=== PATIENT | male | born 1995 | race Caucasian/White ===

== ENCOUNTER 2020-09-29 22:09 | Emergency (ER) | payer OTHER, SELFPAY ==
[2020-09-29 22:15] VITALS: BP 146/86; PULSE 77; RESP 16; TEMP 36.9; O2SAT 97
--- NOTE | 2020-09-30 00:25 | ED.URI ---
HPI - URI/Sore Throat General Chief Complaint: Upper Respiratory Infection Stated Complaint: cough Time Seen by Provider: 09/29/20 23:04 History of Present Illness HPI Narrative: Patient is a 25-year-old male who comes to the ER for evaluation of infectious symptoms. 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 Reports he was driving and developed some chills. No documented fevers. No known sick contacts. Works at a local [employer] station so he may have been around Covid but no known contacts. Denies chest pain or chest pressure. No difficulty swallowing or breathing. Patient concerned he could have been exposed to mold yesterday when he changed a toilet paper wall but did not see any actual mold on the wall. Related Data Allergies Allergy/AdvReac Type Severity Reaction Status Date / Time No Known Allergies Allergy Unverified 11/14/16 11:47 Review of Systems Constitutional: Constitutional: Reports chills, Denies fever(s) and Denies weakness ENT: Reports nasal congestion and Reports sore throat Respiratory: Respiratory: Reports cough, Denies dyspnea and Denies wheezing PMFSH Past Medical History Medical History (Updated 09/30/20 @ 00:28 by Azeem Huerta MD) Asthma Hypothyroidism Surgical History Surgical History (Updated 09/30/20 @ 00:27 by Azeem Huerta MD) No pertinent past surgical history Exam Narrative: Exam Narrative: GENERAL: Well-appearing, well-nourished, and in no acute distress. HEAD: Normocephalic, atraumatic. ENT:Mucous membranes moist. Pharyngeal erythema noted without tonsillar hypertrophy or exudate. Uvula midline and nonedematous. CHEST: Clear to auscultation. No respiratory distress. HEART: Regular rate and rhythm. Normal peripheral pulses. NEURO: Alert and oriented x3. PSYCH: Normal mood and affect. Course Course Emergency Course: Patient swab for Covid. Given precautions. Patient verbalized understanding. Vital Signs Vital signs: Vital Signs Temperature 98.4 F 09/29/20 22:15 Pulse Rate 77 09/29/20 22:15 Respiratory Rate 16 09/29/20 22:15 Blood Pressure 146/86 H 09/29/20 22:15 Pulse Oximetry 97 09/29/20 22:15 Temperature 98.4 F 09/29/20 22:15 Pulse Rate 77 09/29/20 22:15 Respiratory Rate 16 09/29/20 22:15 Blood Pressure 146/86 H 09/29/20 22:15 Pulse Oximetry 97 09/29/20 22:15 MDM - URI/Sore Throat Lab Data Labs: Lab Results 09/30/20 Range/Units 00:05 SARS-CoV-2 RNA (RT-PCR) Pending Discharge Plan Discharge Clinical Impression: Upper respiratory infection, Person under investigation for COVID-19 Patient Disposition: Home, Self-Care Condition: Stable Instructions: COVID-19 (Coronavirus Disease 2019) (ED) Additional Instructions: Your swab for Covid. You should stay at home and not expose yourself to other individuals until you receive the results. If your Covid test is positive you will need to remain in isolation until you are cleared by the health department. If your Covid test is negative you may return to work. Return to the ER if you cannot breathe, you cannot keep down food or water, you have chest pain or shortness of breath, you have additional concerns. Prescriptions: New fluticasone propionate [Allergy Relief (fluticasone)] 50 mcg/actuation spray,suspension 1 spray intranasal DAILY Qty: 16 RF: 0 guaifenesin 400 mg tablet 400 mg PO QID Qty: 14 RF: 0 Follow-up/Referrals: Tu Petersen MD [Physician] - 1 Week PHYSICIAN,ENGLISH INSTRUCTOR [Primary Care Provider] -
[2020-09-30 16:53] LABS: SARS-CoV-2 RNA PCR Negative
== END 2020-09-30 01:00 | disposition home or self-care (01) ==
PROVIDERS: Emergency Provider Emergency Medicine
DX: J06.9 Acute upper respiratory infection, unspecified (principal); Z20.828 Contact with and (suspected) exposure to other viral communicable diseases; J45.909 Unspecified asthma, uncomplicated; E03.9 Hypothyroidism, unspecified
CPT/HCPCS: 99283; C9803; U0003; U0005

== ENCOUNTER 2020-12-16 23:36 | Emergency (ER) | payer OTHER, SELFPAY ==
--- NOTE | ~2020-12-16 | XR_ITS ---
EXAMINATION: XR chest 2V DATE: 12/17/2020 00:07 INDICATION: Syncope. TECHNIQUE: Frontal and lateral views of the chest were obtained. COMPARISON: CT abdomen and pelvis 08/27/2013 FINDINGS: There are mild airspace opacities in left lower lung zone. No pleural effusion or pneumotho rax. The heart size is normal. IMPRESSION: 1. Mild airspace opacities in left lower lung zone, consistent with atelectasis versus pneumonia. Reviewed, dictated and finalized at location A.
--- NOTE | ~2020-12-16 | CT_ITS ---
EXAMINATION: CT brain wo con DATE: 12/17/2020 00:01 INDICATION: Syncope. TECHNIQUE: Computed tomography (CT) of the head was performed without intravenous contrast. The mA wa s adjusted according to patient size. Iterative reconstruction technique was employed. The dose-lengt h product was 605.33 mGy-cm. COMPARISON: None FINDINGS: There is no intracranial hemorrhage, acute infarction, or abnormal intracranial mass lesion . The ventricles are normal in size. There is mild mucosal thickening in the paranasal sinuses. The o rbits are normal. The mastoid air cells are normal. IMPRESSION: 1. Normal brain. Reviewed, dictated and finalized at location A. IMPRESSION: 1. Normal brain.
[2020-12-16 23:32] VITALS: BP 145/90; PULSE 79; RESP 16; TEMP 36.6; O2SAT 100
--- NOTE | 2020-12-16 23:44 | ECG_ITS ---
Measurements Intervals [place] Rate: 74 P: 52 NM: 186 QRS: 54 QRSD: 109 T: 32 QT: 339 QTc: 376 Interpretive Statements SINUS RHYTHM INCOMPLETE RIGHT BUNDLE BRANCH BLOCK ST ELEVATION IN DIFFUSE LEADS, CONSIDER PERICARDITIS, EARLY REPOLARIZATION BASELINE ARTIFACT- I, III, AVR, AVL, AVF ABNORMAL ECG Electronically Signed On 12-17-2020 6:39:54 CDT by Ryan Alexander D.O.
--- NOTE | 2020-12-16 23:46 | ED.SYNCOPE ---
HPI - Syncope General Chief Complaint: Syncope Stated Complaint: syncopal Source: patient, EMS, RN notes reviewed and old records reviewed History of Present Illness HPI narrative: 25-year-old male presents to emergency department via EMS from work after having a syncopal episode. Patient states he right at work around 10 PM, and later on started to feel like he was about to pass out. He was feeling lightheaded/dizzy, and was having some shortness of breath. When he woke up he still has some mild shortness of breath. Per EMS no seizure-like activity. Patient states he has had this in the past before, unknown cause. Does report having a headache since he had the syncopal episode Related Data Allergies Allergy/AdvReac Type Severity Reaction Status Date / Time No Known Allergies Allergy Unverified 11/14/16 11:47 Review of Systems Review of Systems: Narrative: CONSTITUTIONAL: Denies fever, chills, or sweats. EYES: Denies visual changes, redness, or discharge. ENT: Denies rhinorrhea, congestion, sore throat, or otalgia. CARDIOVASCULAR: Denies chest pain, palpitations, or edema. RESPIRATORY: Denies cough or dyspnea. GASTROINTESTINAL: Denies abdominal pain, nausea, vomiting, or diarrhea. GENITOURINARY: Denies dysuria or hematuria. SKIN: Denies rash or itching. MUSCULOSKELETAL: Denies back pain, joint pain, or myalgia. NEUROLOGIC: Denies numbness, dizziness, or weakness. Reports headache PSYCHIATRIC: Denies anxiety or depression. All systems reviewed & are unremarkable except as noted in HPI and below (ROS) PMFSH Past Medical History Medical History Asthma Hypothyroidism Surgical History Surgical History No pertinent past surgical history Exam Narrative: Exam Narrative: GENERAL: Well-appearing, well-nourished. Mild distress HEAD: Normocephalic, atraumatic. EYES: PERRLA and EOMI. ENT: Nares clear, no rhinorrhea or epistaxis. Mucous membranes moist. NECK: Supple. CHEST: Clear to auscultation. No respiratory distress. HEART: Regular rate and rhythm. No murmur heard. Normal peripheral pulses. ABDOMEN: Soft, nontender, nondistended, normal active bowel sounds. EXTREMITIES: Normal range of motion. No edema. SKIN: Warm, dry, no rash. NEURO: No focal deficits. Alert and oriented x3. PSYCH: Normal mood and affect. Course Course Emergency Course: 1:00AM -reevaluated patient, headache improved. Patient states he has been under a lot of stress recently and not sleeping. This likely caused the syncopal episode. 1:35AM -reevaluated patient, no new complaints at this time. Counseled patient follow-up with his primary care physician within 1 week. Return to emergency department if he has no syncopal episode, or other concerns. Counseled patient that he will need repeat chest x-ray by primary care physician. Vital Signs Vital signs: Vital Signs Temperature 36.6 C 12/16/20 23:32 Pulse Rate 79 12/16/20 23:32 Respiratory Rate 16 12/16/20 23:32 Blood Pressure 145/90 H 12/16/20 23:32 Pulse Oximetry 100 12/16/20 23:32 Temperature 36.3 C L 12/17/20 01:56 Pulse Rate 71 12/17/20 01:56 Respiratory Rate 16 12/17/20 01:56 Blood Pressure 138/77 12/17/20 01:56 Pulse Oximetry 100 12/17/20 01:56 MDM - Syncope Medical Records Attestation: I reviewed the patient's medical records. Lab Data Attestation: I reviewed the patient's lab results. Result diagrams: 12/16/20 23:50 12/16/20 23:50 Labs: Lab Results 12/16/20 12/16/20 12/16/20 Range/Units 23:50 23:50 23:50 WBC 7.3 (4.5-10.0) K/mm3 RBC 4.83 (4.6-6.20) M/mm3 Hgb 14.3 (14.0-18.0) g/dL Hct 39.5 L (42.0-52.0) % MCV 81.8 (80-100) fl MCH 29.6 (26-34) pg MCHC 36.2 H (32-36) g/dl RDW 12.6 (11.5-14.5) % Plt Count 218 (150-375) k/mm3 MPV 10.8 H (7.4-10.4) fl I
[2020-12-17 00:30] LABS: Ethanol < 10 mg/dL (<10)
[2020-12-17 00:32] LABS: Basophils Absolute Auto 0.1 K/mm3 (0.0-0.1); Eosinophils Absolute Auto 0.4 K/mm3 (0-0.3); Eosinophils Percent Auto 5.5 % (0-4.4); Hematocrit 39.5 % (42.0-52.0); Hemoglobin 14.3 g/dL (14.0-18.0); Immature Granulocyte Absolute 0.03 K/mm3 (0.00-0.031); Immature Granulocyte Percent A 0.4 % (0-0.5); Lymphocytes Absolute Auto 3.12 K/mm3 (0.9-3.2); Lymphocytes Percent Auto 42.7 % (18.3-44.2); Mean Corpuscular HGB Conc 36.2 g/dl (32-36); Mean Corpuscular Hemoglobin 29.6 pg (26-34); Mean Corpuscular Volume 81.8 fl (80-100); Mean Platelet Volume 10.8 fl (7.4-10.4); Monocytes Absolute Auto 0.4 K/mm3 (0.1-0.6); Monocytes Percent Auto 5.7 % (2.6-8.5); Neutrophils Absolute Auto 3.3 K/mm3 (1.3-6.7); Neutrophils Percent Auto 44.7 % (45.5-73.1); Platelet Count Result 218 k/mm3 (150-375); Red Blood Count 4.83 M/mm3 (4.6-6.20); Red Cell Distribution Width 12.6 % (11.5-14.5); White Blood Count 7.3 K/mm3 (4.5-10.0)
[2020-12-17] MEDS: KETOROLAC 30 MG/ML VIAL (*BKC) IV PUSH (00:32)
[2020-12-17 01:32] LABS: Amphetamine Screen Urine Negative (Negative); Barbiturate Screen Urine Negative (Negative); Benzodiazepines Screen Urine Negative (Negative); Cannabinoid Screen Urine Negative (Negative); Cocaine Screen Urine Negative (Negative); Methadone Screen Urine Negative (Negative); Opiate Screen Urine Negative (Negative); Phencyclidine Screen Urine Negative (Negative)
[2020-12-17 01:56] VITALS: BP 138/77; PULSE 71; RESP 16; TEMP 36.3; O2SAT 100
[2020-12-17 02:53] LABS: Alanine Aminotransferase 72 U/L (4-50); Albumin Level 3.4 g/dL (3.5-5.1); Alkaline Phosphatase 70 U/L (38-126); Anion Gap 7 mmol/L (8-16); Aspartate Amino Transferase 36 U/L (17-59); Bilirubin,Total 0.2 mg/dL (0.2-1.3); Blood Urea Nitrogen 16 mg/dL (9-20); Calcium 7.5 mg/dL (8.4-10.2); Carbon Dioxide 20 mmol/L (22-30); Chloride 110 mmol/L (98-107); Estimated CRCL calculation 206 ml/min; Estimated Glomerular Filt Rate > 60; Glucose 222 mg/dL (75-110); Magnesium 1.4 mg/dL (1.6-2.3); Potassium 3.3 mmol/L (3.4-5.0); Sodium 137 mmol/L (137-145)
== END 2020-12-17 01:57 | disposition home or self-care (01) ==
PROVIDERS: Emergency Provider Emergency Medicine
DX: R55 Syncope and collapse (principal); J45.909 Unspecified asthma, uncomplicated; E03.9 Hypothyroidism, unspecified; F43.9 Reaction to severe stress, unspecified; R53.83 Other fatigue; I45.10 Unspecified right bundle-branch block; R94.31 Abnormal electrocardiogram [ECG] [EKG]
CPT/HCPCS: 36415; 70450; 71046; 80053; 80307; 83735; 85025; 93005; 96374; 99284; J1885

== ENCOUNTER 2020-12-28 16:47 | Emergency (ER) | payer OTHER, SELFPAY ==
[2020-12-28] VITALS (17 sets, daily range): BP systolic 98–140; BP diastolic 68–81; PULSE 80–101; RESP 16–18; TEMP 36.7; O2SAT 95–99
--- NOTE | ~2020-12-28 | CT_ITS ---
EXAMINATION: CT brain wo con DATE: 12/28/2020 18:03 INDICATION: Syncope TECHNIQUE: Computed tomography (CT) of the head was performed without intravenous contrast. The mA wa s adjusted according to patient size. Iterative reconstruction technique was employed. Exam dose: 60 5.33 mGy-cm total exam DLP. COMPARISON: 12/16/2020 CT brain FINDINGS: No intracranial mass lesion or hemorrhage or cerebrovascular accident is detected. No midli ne shift or mass effect. Normal mckeon-white matter differentiation. Normal ventricular size. No subdural or epidural hematoma is detected. No subdural or epidural hematoma. The orbits are symmet fred and unremarkable. No fracture or bone destruction of the cranial vault. There is mild nuchal periosteal thickening of the right maxillary sinus and some soft tissue thickeni ng of the ethmoid air cells. The mastoid air cells are normally developed and aerated. IMPRESSION: Negative intracranial abnormality Reviewed, dictated and finalized at [facility]. Reviewed, dictated and finalized at location A.
--- NOTE | 2020-12-28 16:57 | ECG_ITS ---
Measurements Intervals [place] Rate: 95 P: 57 [place]: 171 QRS: 59 QRSD: 109 T: 32 QT: 329 QTc: 415 Interpretive Statements SINUS RHYTHM INCOMPLETE RIGHT BUNDLE BRANCH BLOCK ST ELEVATION CONSISTENT WITH PERICARDITIS, OR EARLY REPOLARIZATION ABNORMAL ECG Electronically Signed On 12-28-2020 20:03:22 CDT by Ryan Alexander D.O.
[2020-12-28 17:13] LABS: Basophils Percent Auto 0.5 % (0.2-1.2); Eosinophils Absolute Auto 0.4 K/mm3 (0-0.3); Eosinophils Percent Auto 4.9 % (0-4.4); Hemoglobin 15.2 g/dL (14.0-18.0); Immature Granulocyte Absolute 0.04 K/mm3 (0.00-0.031); Immature Granulocyte Percent A 0.5 % (0-0.5); Lymphocytes Absolute Auto 2.53 K/mm3 (0.9-3.2); Lymphocytes Percent Auto 34.1 % (18.3-44.2); Mean Corpuscular HGB Conc 35.3 g/dl (32-36); Mean Corpuscular Hemoglobin 28.9 pg (26-34); Mean Corpuscular Volume 81.7 fl (80-100); Mean Platelet Volume 10.7 fl (7.4-10.4); Monocytes Absolute Auto 0.3 K/mm3 (0.1-0.6); Monocytes Percent Auto 4.6 % (2.6-8.5); Neutrophils Absolute Auto 4.1 K/mm3 (1.3-6.7); Neutrophils Percent Auto 55.4 % (45.5-73.1); Platelet Count Result 212 k/mm3 (150-375); Red Blood Count 5.26 M/mm3 (4.6-6.20); Red Cell Distribution Width 12.7 % (11.5-14.5); White Blood Count 7.4 K/mm3 (4.5-10.0)
--- NOTE | 2020-12-28 18:45 | ED.WEAKNESS ---
HPI - Weakness General Chief complaint: Weakness <Jose Davis MD - Last Filed: 12/28/20 19:14> Stated complaint: headache, near syncope <Jose Davsi MD - Last Filed: 12/28/20 19:14> Time Seen by Provider: 12/28/20 16:53 <Jose Davis MD - Last Filed: 12/28/20 19:14> Source: patient and family <Jose Davis MD - Last Filed: 12/28/20 19:14> Mode of arrival: ambulatory <Jose Davis MD - Last Filed: 12/28/20 19:14> Limitations: no limitations <Jose Davis MD - Last Filed: 12/28/20 19:14> History of Present Illness HPI Narrative: 25-year-old with a history of diabetes, hypothyroidism brought in by family with complaints of marked weakness having frequent syncopal episodes. 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 He also complains of confusion on and off. Patient states that he was at work this afternoon had several similar spells. He denies any headache. No history of chest pain or shortness of breath. No no seizure-like activity. No bladder or bowel incontinence. <Jose Davis MD - Last Filed: 12/28/20 19:14> MD Complaint: generalized weakness <Jose Davis MD - Last Filed: 12/28/20 19:14> Onset (ago): week(s) (2) <Jose Davis MD - Last Filed: 12/28/20 19:14> Location: generalized <Jose Davis MD - Last Filed: 12/28/20 19:14> Related Data Allergies/Adverse reactions: Allergies Allergy/AdvReac Type Severity Reaction Status Date / Time No Known Allergies Allergy Unverified 11/14/16 11:47 <Jose Davis MD - Last Filed: 12/28/20 19:14> Review of Systems Review of Systems: All systems reviewed & are unremarkable except as noted in HPI and below <Jose Davis MD - Last Filed: 12/28/20 19:14> Constitutional: Constitutional: Reports no additional constitutional complaints <Jose Davis MD - Last Filed: 12/28/20 19:14> Eyes: Eyes: Reports no additional eye complaints <Jose Davis MD - Last Filed: 12/28/20 19:14> Cardiovascular: Cardiovascular: Reports no additional cardiovascular complaints <Jose Davis MD - Last Filed: 12/28/20 19:14> Respiratory: Respiratory: Reports no additional respiratory complaints <Jose Davis MD - Last Filed: 12/28/20 19:14> Gastrointestinal: Gastrointestinal: Reports no additional gastrointestinal complaints <Jose Davis MD - Last Filed: 12/28/20 19:14> Musculoskeletal: Musculoskeletal: Reports no additional musculoskeletal complaints <Jose Davis MD - Last Filed: 12/28/20 19:14> Neurologic: Reports system reviewed and no additional complaints, except as documented <Jose Davis MD - Last Filed: 12/28/20 19:14> PMFSH Past Medical History Medical History: Medical History Asthma Hypothyroidism <Jose Davis MD - Last Filed: 12/28/20 19:14> Surgical History Surgical History: Surgical History No pertinent past surgical history <Jose Davis MD - Last Filed: 12/28/20 19:14> Exam Narrative: Exam Narrative: GENERAL: Well-appearing, well-nourished, and in no acute distress. HEAD: Normocephalic, atraumatic. EYES: PERRLA and EOMI. NECK: Supple. CHEST: Clear to auscultation. No respiratory distress. HEART: Regular rate and rhythm. No murmur heard. Normal peripheral pulses. ABDOMEN: Soft, nontender, nondistended, normal active bowel sounds. EXTREMITIES: Normal range of motion. No edema. SKIN: Warm, dry, no rash. NEURO: No focal deficits. Alert and oriented x3. PSYCH: Normal mood and affect. <Jose Davis MD - Last Filed: 12/28/20 19:14> Course Course Emergency Course: Inform patient and family about his lab work, CT findings. Patient states that he drank 32 ounces of regular Mountain Dew prior to coming to the ER and his sugars have been higher. Pat
[2020-12-28 18:48] LABS: Anion Gap 16 mmol/L (8-16); Blood Urea Nitrogen 15 mg/dL (9-20); Calcium 10.3 mg/dL (8.4-10.2); Carbon Dioxide 24 mmol/L (22-30); Chloride 100 mmol/L (98-107); Estimated CRCL calculation 159 ml/min; Estimated Glomerular Filt Rate > 60; Glucose 300 mg/dL (75-110); Potassium 4.3 mmol/L (3.4-5.0); Sodium 140 mmol/L (137-145)
[2020-12-28] MEDS: SODIUM CHLORIDE 0.9% IV 500 ML (19:02)
[2020-12-28] MEDS: INSULIN HUMAN REGULAR (*BKC) 100 UNITS/ML SUB-Q (20:43)
== END 2020-12-28 21:03 | disposition home or self-care (01) ==
PROVIDERS: Family Medicine; Emergency Provider Emergency Medicine; PCP Family Medicine
DX: R55 Syncope and collapse (principal); J45.909 Unspecified asthma, uncomplicated; E03.9 Hypothyroidism, unspecified; E11.65 Type 2 diabetes mellitus with hyperglycemia
CPT/HCPCS: 36415; 70450; 80048; 85025; 93005; 96360; 99284; J1815; J7040

== ENCOUNTER 2023-05-01 13:48 | Emergency (ER) | payer OTHER, SELFPAY ==
--- NOTE | ~2023-05-01 | XR_ITS ---
XR chest 2V DATE: 05/01/2023 14:19 INDICATION: Chest pain. Headache. TECHNIQUE: AP and lateral views COMPARISON: 12/17/2020 AP and lateral chest FINDINGS: Normal heart size. No hilar or mediastinal enlargement. No pulmonary infiltrate or consolid ation, pleural effusion or pulmonary vascular congestion or pneumothorax is detected. IMPRESSION: No active cardiopulmonary disease Reviewed, dictated and finalized at location L.
--- NOTE | 2023-05-01 13:53 | ECG_ITS ---
Measurements Intervals [place] Rate: 82 P: 61 [place]: 164 QRS: 66 QRSD: 114 T: 75 QT: 347 QTc: 408 Interpretive Statements SINUS RHYTHM INCOMPLETE RIGHT BUNDLE BRANCH BLOCK [90+ ms QRS DURATION, TERMINAL R IN V1/V2, 40+ ms S IN I/aVL/V4/V5/V6] NONSPECIFIC ST & T-WAVE ABNORMALITY COMPARED TO ECG 12/28/2020 16:56:57 NO SIGNIFICANT CHANGES Electronically Signed On 05-01-2023 15:51:49 CDT by Henrry Gold M.D.
[2023-05-01 13:54] VITALS: BP 138/98; PULSE 83; RESP 12; TEMP 36.6; O2SAT 99
[2023-05-01 13:58] VITALS: PULSE 90
[2023-05-01 13:59] VITALS: O2SAT 99
--- NOTE | 2023-05-01 14:12 | PC.NURSE ---
Pt to XRAY via stretcher at this time.
[2023-05-01 14:25] LABS: Basophils Percent Auto 0.4 % (0.2-1.2); Eosinophils Absolute Auto 0.1 K/mm3 (0-0.3); Eosinophils Percent Auto 1.9 % (0-4.4); Hematocrit 40.4 % (42.0-52.0); Hemoglobin 13.6 g/dL (14.0-18.0); Immature Granulocyte Absolute 0.04 K/mm3 (0.00-0.031); Immature Granulocyte Percent A 0.6 % (0-0.5); Lymphocytes Absolute Auto 2.67 K/mm3 (0.9-3.2); Mean Corpuscular HGB Conc 33.7 g/dl (32-36); Mean Corpuscular Hemoglobin 28.9 pg (26-34); Mean Corpuscular Volume 85.8 fl (80-100); Mean Platelet Volume 10.3 fl (7.4-10.4); Monocytes Absolute Auto 0.3 K/mm3 (0.1-0.6); Monocytes Percent Auto 4.6 % (2.6-8.5); Neutrophils Absolute Auto 3.8 K/mm3 (1.3-6.7); Neutrophils Percent Auto 54.5 % (45.5-73.1); Platelet Count Result 207 k/mm3 (150-375); Red Blood Count 4.71 M/mm3 (4.6-6.20); Red Cell Distribution Width 12.9 % (11.5-14.5)
[2023-05-01 14:35] LABS: Alanine Aminotransferase 72 U/L (6-50); Alkaline Phosphatase 83 U/L (38-126); Anion Gap 13 mmol/L (8-16); Aspartate Amino Transferase 36 U/L (17-59); Bilirubin,Total 0.5 mg/dL (0.2-1.3); Blood Urea Nitrogen 11 mg/dL (9-20); Calcium 9.8 mg/dL (8.4-10.2); Carbon Dioxide 21 mmol/L (22-30); Chloride 103 mmol/L (98-107); Estimated CRCL calculation 163 ml/min; Estimated Glomerular Filt Rate > 60; Glucose 155 mg/dL (65-110); Lipase 49 U/L (23-300); Potassium 3.7 mmol/L (3.4-5.0); Sodium 137 mmol/L (137-145)
[2023-05-01 14:37] LABS: INR 0.9; Partial Thromboplastin Time 27.7 SECONDS (22.3-36.8); Prothrombin Time 12.8 Seconds (11.1-14.7)
[2023-05-01 14:46] LABS: Troponin I < 0.012 ng/mL (0.000-0.034)
[2023-05-01 14:55] VITALS: BP 156/93; PULSE 96; RESP 14; O2SAT 97
[2023-05-01 15:01] LABS: SARS-CoV-2 RNA PCR Negative (Negative)
[2023-05-01 15:52] VITALS: BP 133/86; PULSE 95; RESP 12; O2SAT 100
--- NOTE | 2023-05-01 16:00 | ED.CHESTPAIN ---
HPI - Chest Pain General Chief Complaint: Chest Pain Stated Complaint: CP Time Seen by Provider: 05/01/23 14:29 History of Present Illness HPI narrative: Patient is a 28-year-old male with a history of diabetes, hypothyroidism presenting with chest pain. Patient states that he woke up this morning with some right-sided chest pain. He initially ignored it and went back to bed but when he woke up it felt worse. States that it is worse with positional changes and sometimes with big breaths. No left-sided chest pain. No leg swelling, recent immobilization, surgeries. Denies lightheadedness or shortness of breath. States that he did have a headache as well as a sore throat and some nasal congestion a couple of days ago. He did not take anything for pain but EMS gave him some aspirin and he states that the symptoms have improved. No fevers or chills, numbness or weakness, abdominal pain, vomiting, diarrhea, dysuria. Related Data Allergies Allergy/AdvReac Type Severity Reaction Status Date / Time No Known Allergies Allergy Verified 05/01/23 14:01 Review of Systems Review of Systems: All systems reviewed & are unremarkable except as noted in HPI and below PMFSH Past Medical History Medical History Asthma Hypothyroidism Surgical History Surgical History No pertinent past surgical history Exam Narrative: GENERAL: Well-appearing and in no acute distress. HEAD: Normocephalic, atraumatic. EYES: PERRLA and EOMI. ENT: Mucous membranes moist. No pharyngeal erythema or exudates NECK: Supple. CHEST: Clear to auscultation. No respiratory distress. + Tenderness along the right costochondral junction into the right sternum HEART: Regular rate and rhythm. No murmur heard. Normal peripheral pulses. ABDOMEN: Soft, nontender, nondistended EXTREMITIES: Normal range of motion. No edema. SKIN: Warm, dry, no rash. NEURO: No focal deficits. Alert and oriented x3. PSYCH: Normal mood and affect. Course Vital Signs Vital signs: Vital Signs Temperature 97.8 F 05/01/23 13:54 Pulse Rate 83 05/01/23 13:54 Respiratory Rate 12 05/01/23 13:54 Blood Pressure 138/98 H 05/01/23 13:54 Pulse Oximetry 99 05/01/23 13:54 Oxygen Delivery Room Air 05/01/23 13:54 Temperature 97.8 F 05/01/23 13:54 Pulse Rate 86 05/01/23 17:19 Respiratory Rate 18 05/01/23 17:19 Blood Pressure 132/76 05/01/23 17:19 Pulse Oximetry 99 05/01/23 17:19 Oxygen Delivery Room Air 05/01/23 13:59 MDM - Chest Pain MDM Narrative Medical decision making narrative: Patient is a 28-year-old male presenting with right-sided chest pain. Vitals are stable. Exam remarkable for the above. EKG per my interpretation shows normal sinus rhythm, incomplete right bundle branch block, nonspecific ST abnormalities. It is unchanged from prior. Blood work is unremarkable. Troponin is undetectable. Patient is PERC negative. Negative for COVID-19. Given the tenderness on exam and the worsening of his pain with certain movements, I most suspect musculoskeletal pain, costochondritis. Discussed appropriate supportive care and return precautions. Advised PCP follow-up. Patient and his parents voiced understanding and are agreeable with plan. Discharged in stable condition. Differential Diagnosis Differential diagnosis: Likely fracture of rib, pneumothorax, atypical chest pain, costochondritis and chest pain Medical Records Data Attestation: I reviewed the patient's medical records. Lab Data Attestation: I reviewed the patient's lab results. 05/01/23 14:11 05/01/23 14:11 Labs: Lab Results 05/01/23 05/01/23 Range/Units 14:11 17:02 WBC 7.0 (4.5-10.0) K/mm3 RBC 4.71 (4.6-6.20) M/mm3 Hgb 13.6 L (14.0-18.0) g/dL Hct 40.4 L (42.0-52.0) % MCV 85.8 (80-100) fl MCH 28.9 (26
[2023-05-01] MEDS: IBUPROFEN 600 MG TABLET PO (16:16)
[2023-05-01 17:19] VITALS: BP 132/76; PULSE 86; RESP 18; O2SAT 99
[2023-05-01 17:30] LABS: Troponin I < 0.012 ng/mL (0.000-0.034)
== END 2023-05-01 17:20 | disposition home or self-care (01) ==
PROVIDERS: Emergency Medicine; Emergency Provider Emergency Medicine; PCP Family Medicine
DX: M94.0 Chondrocostal junction syndrome [Tietze] (principal); Z20.822 Contact with and (suspected) exposure to COVID-19; J45.909 Unspecified asthma, uncomplicated; E03.9 Hypothyroidism, unspecified; E11.9 Type 2 diabetes mellitus without complications; Z79.84 Long term (current) use of oral hypoglycemic drugs; I45.10 Unspecified right bundle-branch block; R94.31 Abnormal electrocardiogram [ECG] [EKG]
CPT/HCPCS: 36415; 71046; 80053; 83690; 84484; 85025; 85610; 85730; 87635; 93005; 99284; A9270

== ENCOUNTER 2023-09-02 14:46 | Emergency (ER) | payer OTHER, SELFPAY ==
--- NOTE | ~2023-09-02 | CT_ITS ---
EXAMINATION: CT abdomen pelvis w con DATE: 09/02/2023 17:49 INDICATION: RLQ pain TECHNIQUE: Computed tomography (CT) of the abdomen and pelvis was performed with 100 mL Omnipaque-350 intravenous contrast. Automated exposure control and iterative reconstruction technique were employe d. The dose-length product was 1169.70 mGy-cm. COMPARISON: 08/27/2013. FINDINGS: Lower thorax: Unremarkable Liver: Enlarged. Diffuse fatty infiltration. Biliary/Gallbladder: Gallbladder is normal. No bile duct dilation. Pancreas: No mass or duct dilation. Spleen: Normal. Adrenals:No mass. Kidneys: No suspicious mass, obstructing stone, or hydronephrosis. 2 mm nonobstructing left lower alana e calcification. GI tract: No small or large bowel dilation. Normal appendix. Diverticulosis without diverticulitis. Mesentery/Peritoneum: No ascites, mass, or free air. Retroperitoneum: No mass. Pelvis: Pelvic organs are within normal limits. Soft Tissues: Soft tissues and body wall unremarkable. Bones: No acute osseous finding. IMPRESSION: Hepatomegaly with steatosis. Otherwise, no acute abdominal process detected. Reviewed, dictated and finalized at location K. EMIC SUPPORT ASSISTANT
[2023-09-02 14:47] VITALS: BP 140/90; PULSE 102; RESP 22; TEMP 36.4; O2SAT 100
[2023-09-02 15:35] LABS: Appearance Urine Clear (Clear); Bacteria Urine None Seen /hpf; Bilirubin Urine Negative (Negative); Blood Urine Negative (Negative); Color Urine Yellow (Yellow); Glucose Urine UA Negative (Negative); Ketones Urine Trace mg/dL (Negative); Leukocyte Esterase Ur Negative LEU/UL (Negative); Nitrate Urine Negative (Negative); Non Pathogenic Casts 0-2; Protein Urine Trace mg/dL (Negative); RBC Urine 0-2 /hpf (0-2); Specific Grav Ur 1.029 (1.001-1.035); Squamous Epithelial Cell Urine None seen /hpf (Few); Urobilinogen Urine 0.2 mg/dL (<2.0); WBC Urine 0-5 /hpf; pH Urine 5.5 (5.0-9.0)
[2023-09-02 15:40] LABS: Add Urine Microscopic? YES
[2023-09-02 16:19] VITALS: BP 125/84; PULSE 100; RESP 20; O2SAT 98
--- NOTE | 2023-09-02 16:50 | ED.ABDPAIN ---
HPI - Abdominal Pain General Chief Complaint: Abdominal Pain Stated Complaint: abd pain Time Seen by Provider: 09/02/23 16:03 History of Present Illness HPI narrative: 28-year-old male presenting to the emergency department for evaluation of right lower quadrant pain. Patient reports the pain started yesterday. Patient states the pain is from his right lower quadrant does radiate down to his testicles. Patient denies any tenderness to palpation. Related Data Allergies Allergy/AdvReac Type Severity Reaction Status Date / Time No Known Allergies Allergy Verified 09/02/23 14:47 Review of Systems Review of Systems: All systems reviewed & are unremarkable except as noted in HPI and below PMFSH Past Medical History Medical History Asthma Hypothyroidism Surgical History Surgical History No pertinent past surgical history Exam Narrative: APPEARANCE: uncomfortable appearing HEAD: normocephalic, atraumatic. EYES: PERRLA/EOMI, conjunctivae clear. NOSE: Normal no drainage EARS:TMS clear with good light reflex. THROAT: Pharynx clear, no exudate. NECK: Supple. No adenopathy, no masses. RESPIRATORY: Airway patent, respirations nonlabored. Clear to auscultation bilaterally, no rales, rhonchi, wheezing. CARDIOVASCULAR: Regular rate and rhythm without murmurs rubs or gallops. ABDOMINAL: No tenderness to right CVA or right lower quadrant MUSCULOSKELETAL: Moves all extremities. Strength/ROM intact, No edema, No calf tenderness. NEURO: Alert. Cranial nerves II through XII intact. Good gait. Good coordination SKIN: Warm, dry. Normal Color . Course Course Emergency Course: 28-year-old male presented to the ED for evaluation right lower quadrant pain. Patient is afebrile with no leukocytosis and a stable hemoglobin of 14.3, patient has no acute abnormalities on his CMP UA had ketones but no evidence of underlying infection. CT scan showed No acute findings. Patient did feel his pain was improved. suspect muscular strain as the underlying etiology. Patient was encouraged close follow-up with primary care physician and was educated reasons to return to the emergency department. All questions concerns were addressed patient was well-appearing at time of discharge. Vital Signs Vital signs: Vital Signs Temperature 97.6 F 09/02/23 14:47 Pulse Rate 102 H 09/02/23 14:47 Respiratory Rate 22 H 09/02/23 14:47 Blood Pressure 140/90 09/02/23 14:47 Pulse Oximetry 100 09/02/23 14:47 Oxygen Delivery Room Air 09/02/23 14:47 Temperature 98.0 F 09/02/23 19:13 Pulse Rate 89 09/02/23 19:13 Respiratory Rate 18 09/02/23 19:13 Blood Pressure 131/93 H 09/02/23 19:13 Pulse Oximetry 98 09/02/23 19:13 Oxygen Delivery Room Air 09/02/23 14:47 MDM - Abdominal Pain Lab Data 09/02/23 17:02 09/02/23 17:02 Labs: Lab Results 09/02/23 09/02/23 Range/Units 15:25 17:02 WBC 7.9 (4.5-10.0) K/mm3 RBC 5.05 (4.6-6.20) M/mm3 Hgb 14.3 (14.0-18.0) g/dL Hct 43.0 (42.0-52.0) % MCV 85.1 (80-100) fl MCH 28.3 (26-34) pg MCHC 33.3 (32-36) g/dl RDW 12.8 (11.5-14.5) % Plt Count 224 (150-375) k/mm3 MPV 9.7 (7.4-10.4) fl Immature Gran % (Auto) 0.4 (0-0.5) % Neut % (Auto) 52.2 (45.5-73.1) % Lymph % (Auto) 39.7 (18.3-44.2) % [place] % (Auto) 6.2 (2.6-8.5) % Eos % (Auto) 1.0 (0-4.4) % Baso % (Auto) 0.5 (0.2-1.2) % Lymph # (Auto) 3.14 (0.9-3.2) K/mm3 [place] # (Auto) 0.5 (0.1-0.6) K/mm3 Eos # (Auto) 0.1 (0-0.3) K/mm3 Baso # (Auto) 0.0 (0.0-0.1) K/mm3 Abs Immat Gran (auto) 0.03 (0.00-0.031) K/mm3 Absolute Neuts (auto) 4.1 (1.3-6.7) K/mm3 Absolute Nucleated RBC 0.0 (0.0-0.012) K/mm3 Nucleated RBC % 0.0 (0.0-0.2) % PT 13.3 (11.1-14.7) Seconds INR 1.0 APTT 29.6 (22.3-3
[2023-09-02 17:09] LABS: Basophils Percent Auto 0.5 % (0.2-1.2); Eosinophils Absolute Auto 0.1 K/mm3 (0-0.3); Hemoglobin 14.3 g/dL (14.0-18.0); Immature Granulocyte Absolute 0.03 K/mm3 (0.00-0.031); Immature Granulocyte Percent A 0.4 % (0-0.5); Lymphocytes Absolute Auto 3.14 K/mm3 (0.9-3.2); Lymphocytes Percent Auto 39.7 % (18.3-44.2); Mean Corpuscular HGB Conc 33.3 g/dl (32-36); Mean Corpuscular Hemoglobin 28.3 pg (26-34); Mean Corpuscular Volume 85.1 fl (80-100); Mean Platelet Volume 9.7 fl (7.4-10.4); Monocytes Absolute Auto 0.5 K/mm3 (0.1-0.6); Monocytes Percent Auto 6.2 % (2.6-8.5); Neutrophils Absolute Auto 4.1 K/mm3 (1.3-6.7); Neutrophils Percent Auto 52.2 % (45.5-73.1); Platelet Count Result 224 k/mm3 (150-375); Red Blood Count 5.05 M/mm3 (4.6-6.20); Red Cell Distribution Width 12.8 % (11.5-14.5); White Blood Count 7.9 K/mm3 (4.5-10.0)
[2023-09-02 17:21] LABS: Lactic Acid Reflex 1.5 mmol/L (0.7-2.0)
[2023-09-02 17:22] LABS: Alanine Aminotransferase 112 U/L (6-50); Alkaline Phosphatase 53 U/L (38-126); Anion Gap 10 mmol/L (8-16); Aspartate Amino Transferase 41 U/L (17-59); Bilirubin,Total 0.5 mg/dL (0.2-1.3); Blood Urea Nitrogen 12 mg/dL (9-20); Calcium 10.2 mg/dL (8.4-10.2); Carbon Dioxide 26 mmol/L (22-30); Chloride 105 mmol/L (98-107); Estimated CRCL calculation 134 ml/min; Estimated Glomerular Filt Rate > 60; Glucose 93 mg/dL (65-110); Lipase 37 U/L (23-300); Potassium 3.7 mmol/L (3.4-5.0); Sodium 141 mmol/L (137-145)
[2023-09-02 17:25] LABS: Prothrombin Time 13.3 Seconds (11.1-14.7)
[2023-09-02 17:26] LABS: Partial Thromboplastin Time 29.6 SECONDS (22.3-36.8)
[2023-09-02] MEDS: HYDROmorphone HCL INJ (*CRX) 1 MG/ML SYR 0.5 MG IV PUSH (18:06)
[2023-09-02 18:12] VITALS: BP 149/97; PULSE 95; RESP 19; O2SAT 99
[2023-09-02] MEDS: ACETAMINOPHEN 325 MG TABLET 650 MG PO (18:36)
[2023-09-02] MEDS: KETOROLAC 15 MG/ML VIAL (*BKC) IV PUSH (18:36)
[2023-09-02] MEDS: CYCLOBENZAPRINE HCL 10 MG TABLET PO (18:36)
[2023-09-02 19:13] VITALS: BP 131/93; PULSE 89; RESP 18; TEMP 36.7; O2SAT 98
== END 2023-09-02 19:14 | disposition home or self-care (01) ==
PROVIDERS: Emergency Provider Emergency Medicine; PCP Family Medicine
DX: S39.011A Strain of muscle, fascia and tendon of abdomen, initial encounter (principal); J45.909 Unspecified asthma, uncomplicated; E03.9 Hypothyroidism, unspecified; K76.0 Fatty (change of) liver, not elsewhere classified; X58.XXXA Exposure to other specified factors, initial encounter
CPT/HCPCS: 36415; 74177; 80053; 81001; 83605; 83690; 85025; 85610; 85730; 96374; 96375; 99284; A9270; J1170; J1885; Q9967